=== PATIENT | female | born 1970 | race Caucasian/White ===

== ENCOUNTER 2017-07-07 08:25 | Emergency (ER) | payer OTHER ==
[2017-07-07] MEDS ORDERED: LORAZEPAM 2 MG/ML SOL IM ONE (08:31)
[2017-07-07] MEDS ORDERED: SODIUM CHLORIDE 0.9% FLUSH 10 ML SOL IV PRN (08:32)
[2017-07-07] MEDS ORDERED: LORAZEPAM 2 MG/ML SOL ONE ×3 (08:32→09:09)
[2017-07-07 08:55] LABS: BASOPHILS % (AUTO) 1 % (0-3); EOSINOPHILS % (AUTO) 0 % (0-9); HEMATOCRIT 34 % (35-47); MEAN CORPUSCULAR HGB CONC 33.7 gm/dl (32.0-36.0); MEAN CORPUSCULAR VOLUME 92 fL (81-99); MONOCYTES % (AUTO) 5.2 % (0-12); NEUTROPHILS % (AUTO) 88.8 % (37-80)
[2017-07-07] MEDS ORDERED: LORAZEPAM 2 MG/ML SOL IV ONE ×3 (09:02→10:58)
[2017-07-07 09:06] LABS: ALBUMIN 3.9 gm/dl (3.4-5.0); ALT 40 IU/L (14-63); CALCIUM 8.8 mg/dl (8.5-10.1); GLOM FILT RATE 42 mL/min (>60); POTASSIUM 3.3 mMol/L (3.5-5.1); SODIUM 142 mMol/L (136-145)
[2017-07-07 09:06] LABS: APPEARANCE,URINE Cloudy; BILIRUBIN,URINE 1+ (NEGATIVE); COLOR,URINE Yellow; GLUCOSE, URINE (UA) NEGATIVE (NEGATIVE); KETONES,URINE 2+ (NEGATIVE); LEUKOCYTE ESTERASE ,URINE NEGATIVE (NEGATIVE); NITRATE,URINE NEGATIVE (NEGATIVE); OCCULT BLOOD,URINE 2+ (NEG-TRACE); PH,URINE 5.5; UROBILINOGEN,URINE 0.2 (0.2-1.0 EU)
[2017-07-07] MEDS ORDERED: SODIUM CHLORIDE 0.9% 1000ML 1,000 ML IV SCH (09:15)
[2017-07-07 09:27] LABS: METHADONE NEGATIVE (NEGATIVE); TRICYCLIC ANTIDEPRESSANTS NEGATIVE (NEGATIVE)
[2017-07-07 09:28] LABS: AMPHETAMINES POSITIVE (NEGATIVE); ICTOTEST,URINE NEGATIVE (NEGATIVE); OPIATES(OP13) NEGATIVE (NEGATIVE); OXYCODONE(OXY) NEGATIVE (NEGATIVE); PROPOXYPHENE(PPX) NEGATIVE (NEGATIVE)
[2017-07-07 09:47] VITALS: TEMP 98.6
[2017-07-07 09:56] LABS: SALICYLATE 3.6 mg/dl (2.8-30.0)
[2017-07-07 10:10] VITALS: RESP 19
[2017-07-07 10:18] VITALS: BP 119/85; PULSE 106; O2SAT 96
[2017-07-07] MEDS ORDERED: SODIUM CHLORIDE 0.9% 1000ML 1,000 ML with POTASSIUM CHLORIDE 2 MEQ/ML 10 MEQ IV ONE (10:25)
[2017-07-07] MEDS ORDERED: POTASSIUM CHLORIDE 2 MEQ/ML SOL IV ONE (10:26)
== END 2017-07-07 11:00 | disposition short-term general hospital (02) | DRG 897 ==
LOC: ED 08:25
DX: F15.129 Other stimulant abuse with intoxication, unspecified (principal); D72.829 Elevated white blood cell count, unspecified; E87.6 Hypokalemia; R00.0 Tachycardia, unspecified
CPT/HCPCS: 80053; 80305; 80307; 81001; 82550; 84703; 85025; 93005; 99285; J2060; J3480